=== PATIENT | female | born 2000 | race Two or more races ===

== ENCOUNTER 2021-01-28 11:38 | Emergency (ER) | payer OTHER ==
[~2021-01-28] VITALS: Ht 157.5 cm; Wt 72.8 kg
[2021-01-28 12:25] VITALS: BP 125/80
== END 2021-01-28 14:42 | disposition home or self-care (01) ==
LOC: ER 11:39
DX: S86.911A Strain of unspecified muscle(s) and tendon(s) at lower leg level, right leg, initial encounter (principal); W18.42XA Slipping, tripping and stumbling without falling due to stepping into hole or opening, initial encounter; Y93.89 Activity, other specified; Y92.89 Other specified places as the place of occurrence of the external cause; Y99.8 Other external cause status
CPT/HCPCS: 73564; 99283